=== PATIENT | male | born 1970 | race Caucasian/White ===

== ENCOUNTER 2021-10-29 07:34 | Day surgery (SDC) | payer BC ==
[2021-10-29] VITALS (15 sets, daily range): BP systolic 98–133; BP diastolic 54–87; PULSE 45–64; TEMP 98.4
[~2021-10-29] VITALS: Ht 177.8 cm; Wt 92.0 kg
[2021-10-29 08:44] LABS: HEMATOCRIT 38.8 % (42.0-52.0); HEMOGLOBIN 13.2 g/dl (13.5-18.0); MEAN CELL VOLUME 83 fl (80.0-100.0); MEAN CORPUSCULAR HEMOGLOBIN 28 pg (27-31); MEAN CORPUSCULAR HGB CONC 34 g/dl (33.0-37.0); MEAN PLATELET VOLUME 9.5 fl (7.4-10.4); PLATELET COUNT 204 K/mm3 (130-400); REDCELL DISTRIBUTION WIDTH-CV 12.6 % (11.5-14.5)
[2021-10-29 08:56] LABS: INR 1.1 (0.8-3.0); PROTHROMBIN TIME 12.2 SECONDS (9.7-12.8)
[2021-10-29 08:59] LABS: PARTIAL THROMBOPLASTIN TIME 36.1 SECONDS (26.0-37.0)
[2021-10-29 09:00] LABS: CREATININE, serum 0.84 mg/dL (0.72-1.25); POTASSIUM 4.4 mmol/L (3.5-4.5)
[2021-10-29] MEDS ORDERED: CARDIZEM CD 18180 MG PO (09:02)
--- NOTE | 2021-10-29 09:20 | NUR ---
Pt to procedure,report to Lan Mendoza.
--- NOTE | 2021-10-29 09:49 | NUR ---
SEE MERGE FOR ALL MEDICATION ADMINISTRATION TIMES, INTRA AND POST SEDATION ASSESSMENTA
--- NOTE | 2021-10-29 14:30 | NUR ---
All air released from band in 2-3 ml incriments.No swelling,no bleeding observed at right radial site.
--- NOTE | 2021-10-29 15:00 | NUR ---
Discharge instructions given to pt.pt verbalizes understanding.INT removed,catheter tip intact.right radial dressing observed clean,dry,intact,soft to touch.Pt escorted out via wheelchair by this nurse.
--- NOTE | 2021-10-29 17:13 | NUR ---
Pt called and reported to this nurse that right hand is swelling after he got home,recomended to losen Coban and see if it resolves.No other swelling per pt report.Pt called back again to report swelling seems to be incresing.This nurse called Dr gifford to report.Recomendation given for pt to go to [facility] per Dr gifford to have them evaluate swelling as it is closer to their location.
== END 2021-10-29 17:04 ==
LOC: COL.CAR 07:34
PROVIDERS: Internal Medicine Cardiovascular Disease
DX: R06.02 Shortness of breath (principal); I08.1 Rheumatic disorders of both mitral and tricuspid valves
CPT/HCPCS: C1769; J1644; J2250; J2704; J3010